=== PATIENT | female | born 1960 | race Two or more races ===

== ENCOUNTER 2018-02-20 07:55 | Day surgery (SDC) | payer OTHER ==
[2018-02-20] VITALS (8 sets, daily range): BP systolic 114–145; BP diastolic 62–72
[~2018-02-20] VITALS: Ht 157.5 cm; Wt 77.1 kg
--- NOTE | 2018-02-20 07:06 | Anethesia Preoperative Eval ---
Anesthesia Pre-op PMH/ROS General Date of Evaluation: Feb 20, 2018 Time of Evaluation: 07:05 Anesthesiologist: jillian ASA Score: ASA 3 Mallampati Score Class I : Soft palate, uvula, fauces, pillars visible Class II: Soft palate, uvula, fauces visible Class III: Soft palate, base of uvula visible Class IV: Only hard plate visible Mallampati Classification: Class II Surgeon: sera Diagnosis: gerd, colon screening Surgical Procedure: egd/colonoscopy Anesthesia History: none Family History: no anesthesia problems Allergies: Coded Allergies: No Known Allergies (Unverified , 02/19/18) Medications: see eMAR Past Medical History Cardiovascular: Reports: HTN, other - hypercholesterole,ia HEENT: Reports: other - sinusitis Other: obesity PSxH Narrative: ovarian cystectomy Anesthesia Pre-op Phys. Exam Physician Exam Last Vital Signs Date Time Temp Pulse Resp B/P (MAP) Pulse Ox O2 Delivery O2 Flow Rate FiO2 02/20/18 08:38 Room Air 02/20/18 08:30 96.5 69 18 145/72 (96) 97 96.5 Constitutional: NAD Neurologic: CN 2-12 intact Cardiovascular: RRR Respiratory: CTA Gastrointestinal: S/NT/ND Airway Exam Mallampati Score: Class II MO: limited Neck: short TMD: 2fb ROM: limited Teeth: intact Anesthesia Pre-op A/P Risk Assessment & Plan Assessment: asa3 Plan: mac Status Change Before Surgery: No Pre-Antibiotics Drug: Dorcas Spencer MD Feb 20, 2018 07:06
[~2018-02-20 07:55] MED LIST: Atropine Inj 1mg/10ml Syr IV PRN; DiphenhydrAMINE 50mg/ml Inj IVP PRN; Labetalol 5mg/ml 20ml vial IV PRN; Midazolam 2mg/2ml Inj IVP PRN; fentaNYL 100 mcg/2 mL IV PRN
[2018-02-20] MEDS ORDERED: ENALAPRIL MALEAT5 MG ORAL (08:26)
[2018-02-20] MEDS ORDERED: PROPRANOLOL HCL10 MG ORAL (08:27)
[2018-02-20] MEDS ORDERED: DEXILANT30 MG ORAL (08:28)
--- NOTE | 2018-02-20 09:47 | Pre-Procedure Note/Attestation ---
Pre-Procedure Note/Attestation Complete Prior to Procedure Planned Procedure: not applicable Procedure Narrative: esophagogastroduodenoscopy and colonoscopy Indications for Procedure Pre-Operative Diagnosis: screening colonoscopy, GERD Attestation I attest that I discussed the nature of the procedure; its benefits; risks and complications; and alternatives (and the risks and benefits of such alternatives ), prior to the procedure, with the patient (or the patient's legal transportation services representative). I attest that, if there was a reasonable possibility of needing a blood transfusion, the patient (or the patient's legal transportation services representative) was given the [facility] standardized written summary, pursuant to the [place] Blood Safety Act ([place] Health and Safety Code # 1645, as amended). I attest that I re-evaluated the patient just prior to the surgery and that there has been no change in the patient's H&P, except as documented below: Anson Carey MD Feb 20, 2018 09:47
--- NOTE | 2018-02-20 09:49 | Short Stay Surgery H&P ---
History of Present Illness History of Present Illness Chief Complaint screening colonoscopy, GERD HPI Carina Ta is a 58 year old female who was admitted on for Colon Screening, Gerd Patient History Allergies: Coded Allergies: No Known Allergies (Unverified , 02/19/18) PAST MEDICAL HISTORY: (1) Ovarian cyst (2) UTI (urinary tract infection) (3) HTN (hypertension) Medication History Scheduled Dexlansoprazole (Dexilant), 30 MG ORAL DAILY, (Reported) Enalapril Maleate* (Enalapril Maleate*), 5 MG ORAL DAILY, (Reported) Propranolol Hcl* (Inderal*), 10 MG ORAL BID, (Reported) Review of Systems Cardiovascular: Reports: no symptoms Respiratory: Reports: no symptoms Skeletal: Reports: no symptoms Gastrointestinal: Reports: gastro esophageal reflux disease Genitourinary: Reports: no symptoms Neurologic: Reports: no symptoms Endocrine: Reports: no symptoms Hematologic: Reports: no symptoms Physical Exam Vital Signs Last Vital Signs Date Time Temp Pulse Resp B/P (MAP) Pulse Ox O2 Delivery O2 Flow Rate FiO2 02/20/18 08:38 Room Air 02/20/18 08:30 96.5 69 18 145/72 (96) 97 96.5 Skin: normal HENT: normal Heart: normal Lungs: normal Abdomen: normal Extremities: normal Plan Plan of Care esophagogastroduodenoscopy and colonoscopy Attestation Are the patient's medical conditions optimized for surgery? Attestation Response: yes Anson Carey MD Feb 20, 2018 09:48
[2018-02-20] MEDS ORDERED: Propofol 200mg/20ml IV ONE (10:00)
[2018-02-20] MEDS ORDERED: Lidocaine 1% MPF 10mg/ml 5ml ONE (10:00)
--- NOTE | 2018-02-20 10:23 | Endoscopy Procedure Note ---
Endoscopy Procedure Note General Indication for Procedure: screening colonoscopy, GERD Procedures Performed: EGD, colonoscopy Operative Findings/Diagnosis: 2 polyps, gastritis Specimen: yes Pt Tolerated Procedure Well: Yes Estimated Blood Loss: none Anesthesia Anesthesiologist: adiel Anesthesia: MAC Inserted Devices Implant(s) used?: No Quality Quality of Bowel Preparation: Excellent Did scope reach the cecum?: Yes Was there any complications?: No GI Core Measures 50 yrs or older w/o bx or poly: No 10yrs. F/U not recommended: Yes If not recommended, why?: Above average risk 10 yrs. F/U needed: Yes 18 years or older w/prev. colo: No Anson Carey MD Feb 20, 2018 10:23
--- NOTE | 2018-02-20 11:15 | Procedure Note ---
DATE OF PROCEDURE: 02/20/2018 SURGEON: Anson Carye M.D. ANESTHESIOLOGIST: Dr. Pulido. PROCEDURE: Upper endoscopy with biopsy and colonoscopy with biopsy. ANESTHESIA: Per Dr. Pulido. INSTRUMENT: Olympus adult flexible upper endoscope and colonoscope. INDICATIONS: Screening colonoscopy evaluation, chronic GERD. The procedure, risks, benefits, and possible consequences, including hemorrhage, aspiration, perforation and infection, and alternative treatments, were explained to the patient/legal guardian by Dr. Anson Carey and the patient/legal guardian understood and accepted these risks. DESCRIPTION OF PROCEDURE: After informed consent was obtained and the patient was adequately sedated, Olympus upper endoscope was advanced from the mouth into the second portion of duodenum and retroflexion was performed in the stomach. The patient had mild gastritis. Random biopsy from antrum and body of the stomach was obtained to rule out H. pylori infection, otherwise the rest of upper endoscopic examination was grossly within normal limits. At this time, the upper endoscope was retrieved. The patient was turned over for colonoscopy. First, rectal exam was performed which was positive for internal and external hemorrhoids. Then, the scope was advanced from the rectum into the cecum documented by appendiceal orifice, ileocecal valve, and right upper quadrant palpation. Then subsequently, the scope was advanced into the terminal ileum. Quality of prep was very good. The patient had two diminutive polyps, one in the sigmoid and one in the rectum, both removed with cold biopsy forceps technique. Retroflexion of rectum showed evidence of internal hemorrhoids. The patient tolerated the procedure very well without any complication. SUMMARY OF FINDINGS: 1. Gastritis, status post biopsy. 2. Two colonic polyps removed, see above for details. 3. Internal and external hemorrhoids. RECOMMENDATIONS: 1. Follow up biopsy results and treat accordingly. 2. We will recommend repeat colonoscopy in 5 years. Anson Carey M.D. DR: Timur JOB#: [id number] CC:
--- NOTE | 2018-02-20 14:28 | Immediate Post-Op Evaluation ---
Immediate Post-Op Evalulation Immediate Post-Op Evalulation Procedure: egd/colonoscopy/bx Date of Evaluation: Feb 20, 2018 Time of Evaluation: 10:35 IV Fluids: 250ml 0.9ns Blood Products: none Estimated Blood Loss: negligible Blood Pressure Systolic: 114 Blood Pressure Diastolic: 69 Pulse Rate: 73 Respiratory Rate: 18 O2 Sat by Pulse Oximetry: 100 Temperature (Fahrenheit): 97.6 Pain Score (1-10): 0 Nausea: No Vomiting: No Complications none Patient Status: awake, reacts, patent Hydration Status: adequate Drug: Dorcas Spencer MD Feb 20, 2018 14:28
--- NOTE | 2018-02-20 14:30 | 48 Hour Post Anesthesia Eval ---
Post Anesthesia Evaluation Procedure: egd/colonoscopy/bx Date of Evaluation: Feb 20, 2018 Time of Evaluation: 10:37 Blood Pressure Systolic: 116 0: 68 Pulse Rate: 63 Respiratory Rate: 18 Temperature (Fahrenheit): 97.6 O2 Sat by Pulse Oximetry: 100 Airway: patent Nausea: No Vomiting: No Pain Intensity: 0 Hydration Status: adequate Cardiopulmonary Status: stable Mental Status/LOC: patient returned to baseline Post-Anesthesia Complications: none Follow-up care needed: N/A Dorcas Delcid MD Feb 20, 2018 14:30
--- NOTE | 2018-02-20 16:41 | Cardiology Report ---
APPROVED REPORT EKG Measurement Heart [id number] NC [id number] Normal sinus rhythm Normal ECG
== END 2018-02-20 11:25 | disposition home or self-care (01) ==
LOC: GAS 07:55
DX: Z12.11 Encounter for screening for malignant neoplasm of colon (principal); K64.8 Other hemorrhoids; K64.4 Residual hemorrhoidal skin tags; K63.5 Polyp of colon; K62.1 Rectal polyp; K21.9 Gastro-esophageal reflux disease without esophagitis; K29.50 Unspecified chronic gastritis without bleeding; I10 Essential (primary) hypertension; E78.00 Pure hypercholesterolemia, unspecified; E66.9 Obesity, unspecified; J32.9 Chronic sinusitis, unspecified
CPT/HCPCS: 43239; 45380; 93005; J2704; 94003; 94150

== ENCOUNTER 2018-05-21 10:33 | Outpatient (CLI) | payer OTHER ==
[~2018-05-21 10:33] MED LIST changes: -Atropine Inj 1mg/10ml Syr IV PRN; +DEXILANT30 MG ORAL; -DiphenhydrAMINE 50mg/ml Inj IVP PRN; +ENALAPRIL MALEAT5 MG ORAL; -Labetalol 5mg/ml 20ml vial IV PRN; -Midazolam 2mg/2ml Inj IVP PRN; +PROPRANOLOL HCL10 MG ORAL; -fentaNYL 100 mcg/2 mL IV PRN
== END 2018-05-21 11:03 | disposition home or self-care (01) ==
LOC: PAN 10:33
DX: B96.81 Helicobacter pylori [H. pylori] as the cause of diseases classified elsewhere (principal)
CPT/HCPCS: 83013